=== PATIENT | female | born 1950 ===

== ENCOUNTER 2017-06-11 08:41 | Observation (INO) | payer MEDICAID, OTHER ==
--- NOTE | 2017-06-11 08:49 | C.PDOC ---
History Of Present Illness 66 y/o female with PMHx of HTN and depression brought to ED by daughter with complaints of chest pain 5/10 and shortness of breath since yesterday. Patient states pain is worse when walking up stairs. patient is visiting from [facility] and reports HTN, depression medication has finished, took last dose yesterday. Daughter is requesting for medication to be refilled. Patient denies fever, chills, abdominal pain, nausea vomiting or any other complaints at this time Time Seen by Provider: 06/11/17 08:48 Chief Complaint (Nursing): Chest Pain History Per: Patient History/Exam Limitations: no limitations Onset/Duration Of Symptoms: Days Current Symptoms Are (Timing): Still Present Quality: "Pain" Associated Symptoms: denies: Nausea, Dyspnea Past Medical History Reviewed: Historical Data, Nursing Documentation, Vital Signs Vital Signs: Last Vital Signs Temp 97.7 F 06/11/17 12:12 Pulse 46 L 06/11/17 12:12 Resp 20 06/11/17 12:56 BP 145/58 L 06/11/17 12:12 Pulse Ox 97 06/11/17 12:12 - Medical History PMH: Depression, HTN Surgical History: No Surg Hx Family History: States: No Known Family Hx Review Of Systems Constitutional: Negative for: Fever, Chills Cardiovascular: Positive for: Chest Pain Respiratory: Positive for: Shortness of Breath. Negative for: Cough Gastrointestinal: Negative for: Nausea, Vomiting, Abdominal Pain Skin: Negative for: Rash Physical Exam - Physical Exam Appears: Non-toxic, No Acute Distress Skin: Normal Color, Warm, Dry, No Rash Head: Atraumatic, Normacephalic Eye(s): bilateral: Normal Inspection Oral Mucosa: Moist Neck: Normal ROM, Supple Chest: Symmetrical Cardiovascular: Other (Sinus bradycardia) Respiratory: Normal Breath Sounds, No Rales, No Rhonchi, No Wheezing Extremity: No Pedal Edema, Capillary Refill (<2 seconds) Neurological/Psych: Oriented x3, Normal Speech ED Course And Treatment - Laboratory Results Result Diagrams: 06/11/17 09:40 06/11/17 09:40 Lab Interpretation: Normal ECG: Interpreted By Me, Viewed By Me ECG Rhythm: Sinus Bradycardia ECG Interpretation: Abnormal Interpretation Of ECG: Flip V1-V5. Suggest anterolateral ischemia Rate From EC (bpm) O2 Sat by Pulse Oximetry: 98 (ra) Medical Decision Making Medical Decision Making: Plan: UA, Blood work, ECG, Iv fluids, Xanax, Aspirin Progress: Patient daughter notified patient could stay under observation overnight .Pt with abnl EKG ,chest pain hx sugg of ischemia with numerous risk factors.Will admit for observation,cardiology consult,serial enzymes Disposition - Disposition Disposition: HOSPITALIZED Disposition Time: 14:40 Condition: FAIR - Clinical Impression Clinical Impression: Chest pain - Scribe Statement The provider has reviewed the documentation as recorded by the Darielibellen Toribio All medical record entries made by the Darielibellen were at my direction and personally dictated by me. I have reviewed the chart and agree that the record accurately reflects my personal performance of the history, physical exam, medical decision making, and the department course for this patient. I have also personally directed, reviewed, and agree with the discharge instructions and disposition. Decision To Admit - Pt Status Changed To: Hospital Disposition Of: Observation - . Bed Request Type: Telemetry Admitting Physician: Lisa Douglas Patient Diagnosis: Chest pain
[2017-06-11] MEDS ORDERED: Aspirin 325 mg EC Tablets PO STA (09:07)
[2017-06-11 09:46] LABS: BASO # 0.1 K/uL (0.0-0.2); BASO % 1.3 % (0.0-2.0); EOS # 0.2 K/uL (0.0-0.7); EOS % 2.6 % (0.0-4.0); HEMATOCRIT 39.3 % (34.0-47.0); LYMPH # 3.6 K/uL (1.0-4.3); LYMPH % 39.1 % (20.0-40.0); MEAN CELL VOLUME 86.1 fL (81.0-99.0); MEAN CORPUSCULAR HEMOGLOBIN 28.3 pg (27.0-31.0); MEAN CORPUSCULAR HGB CONC 32.8 g/dL (33.0-37.0); MONO # 0.8 K/uL (0.0-0.8); MONO % 9.3 % (0.0-10.0); RED CELL DISTRIBUTION WIDTH 13.8 % (11.5-14.5); WHITE BLOOD COUNT 9.1 K/uL (4.8-10.8)
[2017-06-11 10:11] LABS: ALB/GLOB RATIO 0.8 (1.0-2.1); ALKALINE PHOSPHATASE 88 U/L (38-126); ALT/SGPT 18 U/L (9-52); AST/SGOT 31 U/L (14-36); BILIRUBIN,TOTAL 0.9 mg/dL (0.2-1.3); BLOOD UREA NITROGEN 11 mg/dL (7-17); CALCIUM 9.6 mg/dl (8.6-10.4); CARBON DIOXIDE 25 mmol/L (22-30); CHLORIDE 100 mmol/L (98-107); GFR AFRICAN-AMERICAN > 60; GLUCOSE,RANDOM 121 mg/dL (65-105); POTASSIUM 4.4 mmol/L (3.6-5.2); SODIUM 139 mmol/L (132-148); TOTAL PROTEIN 9.2 g/dL (6.3-8.3)
--- NOTE | 2017-06-11 10:33 | RAD ---
HISTORY: chest pain COMPARISON: None available. TECHNIQUE: Chest, one view. FINDINGS: Examination limited by habitus and hypoinflation. LUNGS: Right greater than left hilar prominence. Mild pulmonary venous congestion versus vascular crowding due to hypoinflation. Please note that chest x-ray has limited sensitivity for the detection of pulmonary masses. PLEURA: No significant pleural effusion identified. No definite pneumothorax . CARDIOVASCULAR: Borderline cardiomegaly. Atherosclerotic calcifications of the aorta. OSSEOUS STRUCTURES: Osseous demineralization. Degenerative changes. VISUALIZED UPPER ABDOMEN: Unremarkable. OTHER FINDINGS: None. IMPRESSION: Right greater than left hilar prominence. Mild pulmonary venous congestion versus vascular crowding due to hypoinflation.
--- NOTE | 2017-06-11 12:36 | CP.PCM.HP ---
<Lázaro Meng - Last Filed: 06/11/17 14:04> History of Present Illness - History of Present Illness History of Present Illness: PGY-1 H&P for Dr. Lopez CC: "chest pain" This is a 66 year old female visiting from with PMHx Hypertension, Hypercholesterolemia, Depression who presents complaining of left sided chest pain. It began yesterday morning, and patient was resting at the time. Pain described as an intermittent pressure sensation, non-radiating. Pain is not affected by position, exertion, or meals. Patient believes it happened because she had not taken her blood pressure medication because she ran out of her prescription from the [place]. Patient denies fever, chills, headache, dizziness, change in vision, dyspnea at rest or exertion, abdominal pain, dysuria. Patient states that the pain has improved after being given medication in the ED. Per chart review, patient given full dose aspirin and xanax. 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 PMHx: Hypertension, Hypercholesterolemia, Depression PSHx: Patient doesn't remember why but she had vaginal surgery many years ago. Allergies: NKDA Social: Denies tobacco, drugs, alcohol. Visiting [place]. Family Hx: Father of unknown cardiac issue. Mother with HTN. Home meds: Atenolol 50 mg PO daily, Nifedipine ER 20 mg PO daily (the 20 mg ER tablet comes in a combination pack with atenolol. not carried in the [place]). Torsemide 20 mg PO daily, Hipovastatin 20 mg PO daily (equivalent of Lovastatin in the [place]). Present on Admission - Present on Admission Any Indicators Present on Admission: No Review of Systems - Constitutional Constitutional: absent: Chills, Fever - EENT Eyes: absent: Change in Vision Ears: absent: Decreased Hearing Nose/Mouth/Throat: absent: Nasal Congestion - Cardiovascular Cardiovascular: Chest Pain. absent: Diaphoresis, Dyspnea, Palpitations, Pedal Edema - Respiratory Respiratory: absent: Cough, Dyspnea, Wheezing - Gastrointestinal Gastrointestinal: absent: Abdominal Pain, Constipation, Diarrhea, Nausea, Vomiting - Genitourinary Genitourinary: absent: Dysuria, Hematuria - Musculoskeletal Musculoskeletal: absent: Back Pain - Integumentary Integumentary: absent: Rash - Neurological Neurological: absent: Dizziness, Numbness, Headaches, Tingling, Weakness - Psychiatric Psychiatric: absent: Anxiety - Endocrine Endocrine: absent: Fatigue, Palpitations Past Patient History - Past Social History Smoking Status: Never Smoked - CARDIAC Hx Hypertension: Yes - PSYCHIATRIC Hx Depression: Yes - SURGICAL HISTORY Other/Comment: Vaginal dehiscence - ANESTHESIA Hx Anesthesia: Yes Hx Anesthesia Reactions: No Meds Allergies/Adverse Reactions: Allergies Allergy/AdvReac Type Severity Reaction Status Date / Time No Known Allergies Allergy Verified 06/11/17 08:45 Physical Exam - Constitutional Appears: No Acute Distress - Head Exam Head Exam: ATRAUMATIC, NORMOCEPHALIC - Eye Exam Eye Exam: EOMI, PERRL - ENT Exam ENT Exam: Mucous Membranes Moist - Respiratory Exam Respiratory Exam: Decreased Breath Sounds (secondary to body habitus). absent: Rales, Rhonchi, Wheezes - Cardiovascular Exam Cardiovascular Exam: Bradycardia, +S1, +S2 - GI/Abdominal Exam GI & Abdominal Exam: Normal Bowel Sounds, Soft. absent: Distended, Tenderness - Extremities Exam Extremities exam: Negative for: calf tenderness, pedal edema - Back Exam Back exam: absent: CVA tenderness (L), CVA tenderness (R) - Neurological Exam Neurological exam: Alert, CN II-XII Intact, Oriented x3 - Psychiatric Exam Psychiatric exam: Normal Affect, Normal Mood - Skin Skin Exam: Dry, Intact, Normal Color, Warm Results - Vital Signs Recent Vital Signs: Last Vital Signs Temp 97.7 F 06/11/17 12:12 Pulse 46 L 06/11/17 12:12 Resp 20 06/11/17 12:12 BP 145/58 L 06/11/17 12:12 Pulse Ox 97 06/11/17 12:12 - Labs Result Diagrams: 06/11/17 09:40 06/11/17 09:40 Labs: Laboratory Results - last 24 hr 06/11/17 06/11/17 06/11/17 09:40 09:40 09:40 WBC 9.1 RBC 4.56 Hgb 12.9 Hct 39.3 MCV 86.1 MCH 28.3 MCHC 32.8 L RDW 13.8 Plt Count 319 MPV 9.0 Neut % (Auto) 47.7 L Lymph % (Auto) 39.1 Mills % (Auto) 9.3 Eos % (Auto) 2.6 Baso % (Auto) 1.3 Neut # 4.3 Lymph # 3.6 Mills # 0.8 Eos # 0.2 Baso # 0.1 PT 10.9 INR 1.0 APTT 31 Sodium 139 Potassium 4.4 Chloride 100 Carbon Dioxide 25 Anion Gap 18 BUN 11 Creatinine 0.9 Est GFR ( Amer) > 60 Est GFR (Non-Af Amer) > 60 Random Glucose 121 H Calcium 9.6 Total Bilirubin 0.9 AST 31 ALT 18 Alkaline Phosphatase 88 Troponin I < 0.0120 NT-Pro-B Natriuret Pep 252 Total Protein 9.2 H Albumin 4.1 Globulin 5.1 H Albumin/Globulin Ratio 0.8 L Assessment & Plan - Assessment and Plan (Free Text) Plan: Chest Pain R/o ACS EKG in the ER showed sinus bradycardia with Twave inversions in leads V1-V5. First troponins negative. Pro-BNP negative. F/u SADIE x2 and EKG x2 F/u echo Dr. Phipps cardiology consult. Help appreciated. History of Hypertension Due to bradycardia, atenolol will be restarted at half its dose with holding parameters. Due to Nifedipine ER 20 mg being non-formulary, will start lowest dose ER tab available. * Atenolol 25 mg PO daily * Nifedipine 30 mg ER PO daily * Torsemide 20 mg PO daily History of hypercholesterolemia Lovastatin non-formulary * Crestor 5 mg PO HS History of Depression * Sertraline 50 mg PO Prophylactic Measure Heparin 5000 units Q8 Protonix 40 mg PO daily Morning labs TSH Lipid panel Case DW Dr. John Meng PGY-1 <Melissa Lopez - Last Filed: 06/11/17 19:35> Results - Vital Signs Recent Vital Signs: Last Vital Signs Temp 98.1 F 06/11/17 15:53 Pulse 43 L 06/11/17 15:53 Resp 18 06/11/17 15:53 BP 123/72 06/11/17 15:53 Pulse Ox 97 06/11/17 15:53 - Labs Result Diagrams: 06/11/17 09:40 06/11/17 09:40 Labs: Laboratory Results - last 24 hr 06/11/17 06/11/17 06/11/17 09:40 09:40 09:40 WBC 9.1 RBC 4.56 Hgb 12.9 Hct 39.3 MCV 86.1 MCH 28.3 MCHC 32.8 L RDW 13.8 Plt Count 319 MPV 9.0 Neut % (Auto) 47.7 L Lymph % (Auto) 39.1 Mills % (Auto) 9.3 Eos % (Auto) 2.6 Baso % (Auto) 1.3 Neut # 4.3 Lymph # 3.6 Mills # 0.8 Eos # 0.2 Baso # 0.1 PT 10.9 INR 1.0 APTT 31 Sodium 139 Potassium 4.4 Chloride 100 Carbon Dioxide 25 Anion Gap 18 BUN 11 Creatinine 0.9 Est GFR ( Amer) > 60 Est GFR (Non-Af Amer) > 60 Random Glucose 121 H Calcium 9.6 Total Bilirubin 0.9 AST 31 ALT 18 Alkaline Phosphatase 88 Total Creatine Kinase CK-MB (Mass) Troponin I < 0.0120 Troponin I, Quant NT-Pro-B Natriuret Pep 252 Total Protein 9.2 H Albumin 4.1 Globulin 5.1 H Albumin/Globulin Ratio 0.8 L 06/11/17 17:04 WBC RBC Hgb Hct MCV MCH MCHC RDW Plt Count MPV Neut % (Auto) Lymph % (Auto) Mills % (Auto) Eos % (Auto) Baso % (Auto) Neut # Lymph # Mills # Eos # Baso # PT INR APTT Sodium Potassium Chloride Carbon Dioxide Anion Gap BUN Creatinine Est GFR ( Amer) Est GFR (Non-Af Amer) Random Glucose Calcium Total Bilirubin AST ALT Alkaline Phosphatase Total Creatine Kinase 87 CK-MB (Mass) 0.58 Troponin I Troponin I, Quant < 0.0120 NT-Pro-B Natriuret Pep Total Protein Albumin Globulin Albumin/Globulin Ratio Attending/Attestation - Attestation I have personally seen and examined this patient.: Yes I have fully participated in the care of the patient.: Yes I have reviewed all pertinent clinical information: Yes Notes (Text): This is a 66years old female with history of hypertension,hyperlipidemia and depression came for chest pain.Patient was seen and examined with resident.History reviewed.On examination she is comfortable ,not in pain.EKG with T wave invertion,Troponin not elevated plan-do two more sets of troponin and EKG,cardiology consult.continue home meds .Tele Observation overnight
[2017-06-11] MEDS: NIFEdipine 30 mg ER Tab PO SCH (16:24)
[2017-06-12 04:58] VITALS: O2SAT 97
[2017-06-12 07:26] LABS: BASO # 0.1 K/uL (0.0-0.2); BASO % 0.8 % (0.0-2.0); EOS # 0.2 K/uL (0.0-0.7); EOS % 2.9 % (0.0-4.0); HEMATOCRIT 37.3 % (34.0-47.0); LYMPH # 2.9 K/uL (1.0-4.3); LYMPH % 41.1 % (20.0-40.0); MEAN CELL VOLUME 86.8 fL (81.0-99.0); MEAN CORPUSCULAR HEMOGLOBIN 28.7 pg (27.0-31.0); MEAN CORPUSCULAR HGB CONC 33.1 g/dL (33.0-37.0); MEAN PLATELET VOLUME 9.1 fL (7.2-11.7); MONO # 0.7 K/uL (0.0-0.8); MONO % 10.6 % (0.0-10.0); RED CELL DISTRIBUTION WIDTH 13.8 % (11.5-14.5)
[2017-06-12 08:05] LABS: CHLORIDE 100 mmol/L (98-107); POTASSIUM 3.6 mmol/L (3.6-5.2); SODIUM 135 mmol/L (132-148)
[2017-06-12 08:07] LABS: BILIRUBIN,TOTAL 0.7 mg/dL (0.2-1.3); CARBON DIOXIDE 27 mmol/L (22-30); CHOLESTEROL 172 mg/dL (0-199); GFR AFRICAN-AMERICAN > 60
[2017-06-12 08:08] LABS: ALB/GLOB RATIO 0.9 (1.0-2.1); ALKALINE PHOSPHATASE 86 U/L (38-126); ALT/SGPT 24 U/L (9-52); AST/SGOT 28 U/L (14-36); BLOOD UREA NITROGEN 10 mg/dL (7-17); CALCIUM 8.7 mg/dl (8.6-10.4); GLUCOSE,RANDOM 110 mg/dL (65-105); TOTAL PROTEIN 7.8 g/dL (6.3-8.3)
[2017-06-12 08:23] LABS: THYROID STIMULATING HORMONE 1.39 mIU/L (0.46-4.68)
[2017-06-12 08:30] VITALS: BP 130/78; PULSE 45; RESP 20; TEMP 98.2
[2017-06-12] MEDS ORDERED: Pantoprazole 40 mg EC Tab PO SCH (10:00)
[2017-06-12] MEDS ORDERED: NIFEdipine 30 mg ER Tab PO SCH (10:00)
[2017-06-12] MEDS: NIFEdipine 30 mg ER Tab PO SCH (10:14)
--- NOTE | 2017-06-12 11:21 | CP.PCM.CON ---
History of Present Illness - History of Present Illness History of Present Illness: patient seen/examined. history of HTN presents with chest pain. She states symptoms lasted for <1 minute, felt symptoms were due to lack of medications (she ran out of meds one week ago). The patient states she has no current chest pain. EKG reveals normal sinus rhythm with anterolateral T wave inversions. Cardiac enzymes are negative. Given absence of symptoms and negative cardiac enzymes patient can be discharged to home. I would consider nuclear stress test to assess for myocardial ischemia, however the patient wishes to go home and have testing in her country. I informed patient and family that if symptoms recur to return immediately to the ER. Add plavix 75 mg daily. Past Patient History - Past Medical History & Family History Past Medical History?: Yes - Past Social History Smoking Status: Never Smoked - CARDIAC Hx Hypertension: Yes - PULMONARY Hx Respiratory Disorders: No - NEUROLOGICAL Hx Neurological Disorder: No - HEENT Hx HEENT Problems: No - RENAL Hx Chronic Kidney Disease: No - ENDOCRINE/METABOLIC Hx Endocrine Disorders: No - HEMATOLOGICAL/ONCOLOGICAL Hx Blood Disorders: No - INTEGUMENTARY Hx Dermatological Problems: No - MUSCULOSKELETAL/RHEUMATOLOGICAL Hx Musculoskeletal Disorders: No Hx Falls: No - GASTROINTESTINAL Hx Gastrointestinal Disorders: No - GENITOURINARY/GYNECOLOGICAL Hx Genitourinary Disorders: No - PSYCHIATRIC Hx Depression: Yes - SURGICAL HISTORY Other/Comment: Vaginal dehiscence - ANESTHESIA Hx Anesthesia: Yes Hx Anesthesia Reactions: No Meds Home Medications: Home Medication List Medication Instructions Recorded Confirmed Type Aspirin [Aspirin Chewable] 81 mg PO DAILY chew 06/12/17 Rx Lovastatin 20 mg PO HS 30 Days #30 tablet 06/12/17 Rx NIFEdipine ER [Procardia XL] 30 mg PO DAILY 30 Days #30 ter 06/12/17 Rx Sertraline [Zoloft] 50 mg PO DAILY 30 Days #30 tab 06/12/17 Rx Torsemide [Demadex] 20 mg PO DAILY 30 Days #30 tab 06/12/17 Rx Allergies/Adverse Reactions: Allergies Allergy/AdvReac Type Severity Reaction Status Date / Time No Known Allergies Allergy Verified 06/11/17 08:45 - Medications Medications: Current Medications Aspirin (Aspirin Chewable) 81 mg PO DAILY [facility] Last Admin: 06/12/17 10:13 Dose: 81 mg Atenolol (Tenormin) 25 mg PO DAILY [facility] Last Admin: 06/12/17 10:14 Dose: Not Given Heparin Sodium (Porcine) (Heparin) 5,000 units SC Q8 [facility] Last Admin: 06/12/17 05:32 Dose: 5,000 units Nifedipine (Procardia Xl) 30 mg PO DAILY [facility] Last Admin: 06/12/17 10:14 Dose: 30 mg Pantoprazole Sodium (Protonix Ec Tab) 40 mg PO DAILY [facility] Last Admin: 06/12/17 10:13 Dose: 40 mg Rosuvastatin Calcium (Crestor) 5 mg PO HS [facility] Last Admin: 06/11/17 21:23 Dose: 5 mg Sertraline HCl (Zoloft) 50 mg PO DAILY [facility] Last Admin: 06/12/17 10:14 Dose: 50 mg Torsemide (Demadex) 20 mg PO DAILY [facility] Last Admin: 06/12/17 10:13 Dose: 20 mg Results - Vital Signs Recent Vital Signs: Last Vital Signs Temp 98.2 F 06/12/17 08:29 Pulse 45 L 06/12/17 08:29 Resp 20 06/12/17 08:29 BP 130/78 06/12/17 08:29 Pulse Ox 97 06/12/17 08:29 - Labs Result Diagrams: 06/12/17 07:12 06/12/17 07:12 Labs: Laboratory Results - last 24 hr 06/11/17 06/12/17 06/12/17 17:04 00:39 07:12 WBC 7.0 RBC 4.30 Hgb 12.4 Hct 37.3 MCV 86.8 MCH 28.7 MCHC 33.1 RDW 13.8 Plt Count 283 MPV 9.1 Neut % (Auto) 44.6 L Lymph % (Auto) 41.1 H Schley % (Auto) 10.6 H Eos % (Auto) 2.9 Baso % (Auto) 0.8 Neut # 3.1 Lymph # 2.9 Schley # 0.7 Eos # 0.2 Baso # 0.1 Sodium Potassium Chloride Carbon Dioxide Anion Gap BUN Creatinine Est GFR ( Amer) Est GFR (Non-Af Amer) Random Glucose Calcium Total Bilirubin AST ALT Alkaline Phosphatase Total Creatine Kinase 87 90 CK-MB (Mass) 0.58 0.49 Troponin I, Quant < 0.0120 < 0.0120 Total Protein Albumin Globulin Albumin/Globulin Ratio Triglycerides Cholesterol LDL Cholesterol Direct HDL Cholesterol TSH 3rd Generation 06/12/17 07:12 WBC RBC Hgb Hct MCV MCH MCHC RDW Plt Count MPV Neut % (Auto) Lymph % (Auto) Schley % (Auto) Eos % (Auto) Baso % (Auto) Neut # Lymph # Schley # Eos # Baso # Sodium 135 Potassium 3.6 Chloride 100 Carbon Dioxide 27 Anion Gap 12 BUN 10 Creatinine 0.8 Est GFR ( Amer) > 60 Est GFR (Non-Af Amer) > 60 Random Glucose 110 H Calcium 8.7 Total Bilirubin 0.7 AST 28 ALT 24 Alkaline Phosphatase 86 Total Creatine Kinase CK-MB (Mass) Troponin I, Quant Total Protein 7.8 Albumin 3.7 Globulin 4.2 H Albumin/Globulin Ratio 0.9 L Triglycerides 115 Cholesterol 172 LDL Cholesterol Direct 128 HDL Cholesterol 34 TSH 3rd Generation 1.39
--- NOTE | 2017-06-12 12:20 | CP.PCM.DIS ---
<Lázaro Meng - Last Filed: 06/12/17 18:51> Provider - Provider Date of Admission: 06/11/17 11:09 Attending physician: Lisa Douglas DO Consults: Dr. Phipps-cardiology Time Spent in preparation of Discharge (in minutes): 32 Diagnosis - Discharge Diagnosis (1) Chest pain, rule out acute myocardial infarction Status: Acute (2) History of hypertension Status: Chronic (3) History of hypercholesterolemia Status: Chronic (4) History of depression Status: Chronic (5) Prophylactic measure Status: Acute Hospital Course - Lab Results Lab Results: Most Recent Lab Values WBC 7.0 K/uL (4.8-10.8) 06/12/17 07:12 RBC 4.30 Mil/uL (3.80-5.20) 06/12/17 07:12 Hgb 12.4 g/dL (11.0-16.0) 06/12/17 07:12 Hct 37.3 % (34.0-47.0) 06/12/17 07:12 MCV 86.8 fL (81.0-99.0) 06/12/17 07:12 MCH 28.7 pg (27.0-31.0) 06/12/17 07:12 MCHC 33.1 g/dL (33.0-37.0) 06/12/17 07:12 RDW 13.8 % (11.5-14.5) 06/12/17 07:12 Plt Count 283 K/uL (130-400) 06/12/17 07:12 MPV 9.1 fL (7.2-11.7) 06/12/17 07:12 Neut % (Auto) 44.6 % (50.0-75.0) L 06/12/17 07:12 Lymph % (Auto) 41.1 % (20.0-40.0) H 06/12/17 07:12 Holmes % (Auto) 10.6 % (0.0-10.0) H 06/12/17 07:12 Eos % (Auto) 2.9 % (0.0-4.0) 06/12/17 07:12 Baso % (Auto) 0.8 % (0.0-2.0) 06/12/17 07:12 Neut # 3.1 K/uL (1.8-7.0) 06/12/17 07:12 Lymph # 2.9 K/uL (1.0-4.3) 06/12/17 07:12 Holmes # 0.7 K/uL (0.0-0.8) 06/12/17 07:12 Eos # 0.2 K/uL (0.0-0.7) 06/12/17 07:12 Baso # 0.1 K/uL (0.0-0.2) 06/12/17 07:12 PT 10.9 SECONDS (9.7-12.2) 06/11/17 09:40 INR 1.0 06/11/17 09:40 APTT 31 SECONDS (21-34) 06/11/17 09:40 Sodium 135 mmol/L (132-148) 06/12/17 07:12 Potassium 3.6 mmol/L (3.6-5.2) 06/12/17 07:12 Chloride 100 mmol/L (98-107) 06/12/17 07:12 Carbon Dioxide 27 mmol/L (22-30) 06/12/17 07:12 Anion Gap 12 (10-20) 06/12/17 07:12 BUN 10 mg/dL (7-17) 06/12/17 07:12 Creatinine 0.8 mg/dL (0.7-1.2) 06/12/17 07:12 Est GFR ( Amer) > 60 06/12/17 07:12 Est GFR (Non-Af Amer) > 60 06/12/17 07:12 Random Glucose 110 mg/dL (65-105) H 06/12/17 07:12 Calcium 8.7 mg/dl (8.6-10.4) 06/12/17 07:12 Total Bilirubin 0.7 mg/dL (0.2-1.3) 06/12/17 07:12 AST 28 U/L (14-36) 06/12/17 07:12 ALT 24 U/L (9-52) 06/12/17 07:12 Alkaline Phosphatase 86 U/L (38-126) 06/12/17 07:12 Total Creatine Kinase 90 U/L (30-135) 06/12/17 00:39 CK-MB (Mass) 0.49 ng/mL (0.0-3.38) 06/12/17 00:39 Troponin I < 0.0120 ng/mL (0.00-0.120) 06/11/17 09:40 Troponin I, Quant < 0.0120 ng/mL (0.00-0.120) 06/12/17 00:39 NT-Pro-B Natriuret Pep 252 pg/mL (0-900) 06/11/17 09:40 Total Protein 7.8 g/dL (6.3-8.3) 06/12/17 07:12 Albumin 3.7 g/dL (3.5-5.0) 06/12/17 07:12 Globulin 4.2 gm/dL (2.2-3.9) H 06/12/17 07:12 Albumin/Globulin Ratio 0.9 (1.0-2.1) L 06/12/17 07:12 Triglycerides 115 mg/dL (0-149) 06/12/17 07:12 Cholesterol 172 mg/dL (0-199) 06/12/17 07:12 LDL Cholesterol Direct 128 mg/dL (0-129) 06/12/17 07:12 HDL Cholesterol 34 mg/dL (30-70) 06/12/17 07:12 TSH 3rd Generation 1.39 mIU/L (0.46-4.68) 06/12/17 07:12 - Hospital Course Hospital Course: On admission: "This is a 66 year old [place] with PMHx Hypertension, Hypercholesterolemia, Depression who presents complaining of left sided chest pain. It began yesterday morning, and patient was resting at the time. Pain described as an intermittent pressure sensation, non-radiating. Pain is not affected by position, exertion, or meals. Patient believes it happened because she had not taken her blood pressure medication because she ran out of her prescription from the [place]. Patient denies fever, chills, headache, dizziness, change in vision, dyspnea at rest or exertion, abdominal pain, dysuria. Patient states that the pain has improved after being given medication in the ED. Per chart review, patient given full dose aspirin and xanax. Patient has a test automation architect in the [place] who has her on antihypertensive medications as listed below." Hospital Course: Patient admitted for chest pain and to rule out ACS. Patient's chest pain resolved. Troponins were unremarkable. Multiple EKG significant for sinus bradycardia with T wave inversions in V1-V5. Patient asymptomatic. Financial Secretary Dr. Phipps consulted. Dr. Phipps cleared patient for discharge. Patient discharged with prescriptions for her home medications and Plavix per Dr. Clay's recommendation. Home Atenolol was held due to bradycardia. This is a summary of the hospital course. For more information, refer to the medical records. Discharge Exam - Head Exam Head Exam: ATRAUMATIC, NORMOCEPHALIC - Eye Exam Eye Exam: EOMI, PERRL - ENT Exam ENT Exam: Mucous Membranes Moist - Respiratory Exam Respiratory Exam: Decreased Breath Sounds (secondary to body habitus), NORMAL BREATHING PATTERN. absent: Rales, Rhonchi, Wheezes - Cardiovascular Exam Cardiovascular Exam: Bradycardia, +S1, +S2 - GI/Abdominal Exam GI & Abdominal Exam: Normal Bowel Sounds, Soft. absent: Distended, Tenderness - Extremities Exam Extremities exam: pedal pulses present - Neurological Exam Neurological exam: Alert, CN II-XII Intact, Oriented x3 - Psychiatric Exam Psychiatric exam: Normal Affect, Normal Mood - Skin Skin Exam: Dry, Intact, Normal Color, Warm Discharge Plan - Discharge Medications Prescriptions: Clopidogrel [Plavix] 75 mg PO DAILY 30 Days #30 tab Lovastatin 20 mg PO HS 30 Days #30 tablet NIFEdipine ER [Procardia XL] 30 mg PO DAILY 30 Days #30 ter Sertraline [Zoloft] 50 mg PO DAILY 30 Days #30 tab Torsemide [Demadex] 20 mg PO DAILY 30 Days #30 tab - Follow Up Plan Condition: STABLE Disposition: HOME/ ROUTINE Instructions: Chest Pain (DC), Chest Pain (GEN) Additional Instructions: We are discharging you on the same prescriptions that you were taking except for the Atenolol. We recommend that you stop taking it because of your low heart rate. If you take it, the heart may beat even slower. Take the following medications: 1) Nifedipine Extended Release 30 mg by mouth once a day 2) Torsemide 20 mg by mouth once a day 3) Lovastatin 20 mg by mouth once a day 4) Sertraline 50 mg by mouth once a day 5) Aspirin 81 mg by mouth once a day 6) Plavix 75 mg by mouth once a day We did not give a prescription for the aspirin because you can buy it without one. You may not recognize some of these medication names because they are sold under a different brand name in the [place]. Please follow up at the [facility] in the basement of the hospital within 1 week. Please follow up with your test automation architect as soon as you return to the [facility]. If there are any new or worsening symptoms, please return to the emergency room. Nosotros le damos de mare en las mismas prescripciones que usted estaba tomando excepto para el Atenolol. Le recomendamos que deje de tomarlo debido a cuevas frecuencia cardaca baja. Si lo liseth, el corazn puede batir incluso ms marroquin. Haskell los siguientes medicamentos: 1) Nifedipine Extended Release 30 mg por va oral catherine vez al da 2) Torsemida 20 mg por va oral catherine vez al da 3) Lovastatina 20 mg por va oral catherine vez al da 4) Sertralina 50 mg por va oral catherine vez al da 5) Aspirina 81 mg por va oral catherine vez al da 6) Plavix 75 mg por va oral catherine vez al da No le dimos catherine receta para la aspirina porque usted puede comprarla sin catherine. Es posible que no reconozca algunos de estos nombres de medicamentos porque se venden bajo catherine mahin distinta en la [place]. Por favor, siga en el [facility] en el stano del hospital dentro de catherine semana. Por favor, siga con cuevas cardilogo russo pronto erick regrese a la [place]. Si hay sntomas nuevos o que empeoran, por favor regrese a la dennis de emergencias. Referrals: [facility] at [facility] [Outside] Clau Phipps MD [Staff Provider] - <Melissa Lopez - Last Filed: 06/13/17 16:04> Provider - Provider Date of Admission: 06/11/17 11:09 Attending physician: Lisa Douglas, DO Hospital Course - Lab Results Lab Results: Most Recent Lab Values WBC 7.0 K/uL (4.8-10.8) 06/12/17 07:12 RBC 4.30 Mil/uL (3.80-5.20) 06/12/17 07:12 Hgb 12.4 g/dL (11.0-16.0) 06/12/17 07:12 Hct 37.3 % (34.0-47.0) 06/12/17 07:12 MCV 86.8 fL (81.0-99.0) 06/12/17 07:12 MCH 28.7 pg (27.0-31.0) 06/12/17 07:12 MCHC 33.1 g/dL (33.0-37.0) 06/12/17 07:12 RDW 13.8 % (11.5-14.5) 06/12/17 07:12 Plt Count 283 K/uL (130-400) 06/12/17 07:12 MPV 9.1 fL (7.2-11.7) 06/12/17 07:12 Neut % (Auto) 44.6 % (50.0-75.0) L 06/12/17 07:12 Lymph % (Auto) 41.1 % (20.0-40.0) H 06/12/17 07:12 Holmes % (Auto) 10.6 % (0.0-10.0) H 06/12/17 07:12 Eos % (Auto) 2.9 % (0.0-4.0) 06/12/17 07:12 Baso % (Auto) 0.8 % (0.0-2.0) 06/12/17 07:12 Neut # 3.1 K/uL (1.8-7.0) 06/12/17 07:12 Lymph # 2.9 K/uL (1.0-4.3) 06/12/17 07:12 Holmes # 0.7 K/uL (0.0-0.8) 06/12/17 07:12 Eos # 0.2 K/uL (0.0-0.7) 06/12/17 07:12 Baso # 0.1 K/uL (0.0-0.2) 06/12/17 07:12 PT 10.9 SECONDS (9.7-12.2) 06/11/17 09:40 INR 1.0 06/11/17 09:40 APTT 31 SECONDS (21-34) 06/11/17 09:40 Sodium 135 mmol/L (132-148) 06/12/17 07:12 Potassium 3.6 mmol/L (3.6-5.2) 06/12/17 07:12 Chloride 100 mmol/L (98-107) 06/12/17 07:12 Carbon Dioxide 27 mmol/L (22-30) 06/12/17 07:12 Anion Gap 12 (10-20) 06/12/17 07:12 BUN 10 mg/dL (7-17) 06/12/17 07:12 Creatinine 0.8 mg/dL (0.7-1.2) 06/12/17 07:12 Est GFR ( Amer) > 60 06/12/17 07:12 Est GFR (Non-Af Amer) > 60 06/12/17 07:12 Random Glucose 110 mg/dL (65-105) H 06/12/17 07:12 Calcium 8.7 mg/dl (8.6-10.4) 06/12/17 07:12 Total Bilirubin 0.7 mg/dL (0.2-1.3) 06/12/17 07:12 AST 28 U/L (14-36) 06/12/17 07:12 ALT 24 U/L (9-52) 06/12/17 07:12 Alkaline Phosphatase 86 U/L (38-126) 06/12/17 07:12 Total Creatine Kinase 90 U/L (30-135) 06/12/17 00:39 CK-MB (Mass) 0.49 ng/mL (0.0-3.38) 06/12/17 00:39 Troponin I < 0.0120 ng/mL (0.00-0.120) 06/11/17 09:40 Troponin I, Quant < 0.0120 ng/mL (0.00-0.120) 06/12/17 00:39 NT-Pro-B Natriuret Pep 252 pg/mL (0-900) 06/11/17 09:40 Total Protein 7.8 g/dL (6.3-8.3) 06/12/17 07:12 Albumin 3.7 g/dL (3.5-5.0) 06/12/17 07:12 Globulin 4.2 gm/dL (2.2-3.9) H 06/12/17 07:12 Albumin/Globulin Ratio 0.9 (1.0-2.1) L 06/12/17 07:12 Triglycerides 115 mg/dL (0-149) 06/12/17 07:12 Cholesterol 172 mg/dL (0-199) 06/12/17 07:12 LDL Cholesterol Direct 128 mg/dL (0-129) 06/12/17 07:12 HDL Cholesterol 34 mg/dL (30-70) 06/12/17 07:12 TSH 3rd Generation 1.39 mIU/L (0.46-4.68) 06/12/17 07:12
--- NOTE | 2017-06-12 12:51 | CARD ---
APPROVED REPORT EXAM: Two-dimensional and M-mode echocardiogram with Doppler and color Doppler. INDICATION Chest Pain RISK FACTORS Hypertension Hyperlipidemia 2D DIMENSIONS IVSd1.0 (0.7-1.1cm)LVDd5.3 (3.9-5.9cm) PWd1.1 (0.7-1.1cm)LVDs3.5 (2.5-4.0cm) FS (%) 34.1 %LVEF (%)62.6 (>50%) M-Mode DIMENSIONS Left Atrium (MM)4.46 (2.5-4.0cm)Aortic Root3.23 (2.2-3.7cm) Aortic Cusp Exc.2.28 (1.5-2.0cm) Mitral Valve MV E Tmbudkai22.2cm/sMV A Bjrveipj41.6cm/sE/A ratio0.8 TDI E/Lateral E'0.0E/Medial E'0.0 Tricuspid Valve TR Peak Lhcsmhgr334yc/sTR Peak Gr.[id number] LEFT VENTRICLE The left ventricle is normal size. There is normal left ventricular wall thickness. The left ventricular function is normal. The left ventricular ejection fraction is within the normal range. No regional wall motion abnormalities noted. Transmitral Doppler flow pattern is Grade I-abnormal relaxation pattern. No left ventricle thrombus noted on this study. There is no ventricular septal defect visualized. There is no left ventricular aneurysm. There is no mass noted in the left ventricle. RIGHT VENTRICLE The right ventricle is normal size. There is normal right ventricular wall thickness. The right ventricular systolic function is normal. ATRIA The left atrium is moderately dilated. The right atrium size is normal. The interatrial septum is intact with no evidence for an atrial septal defect. AORTIC VALVE The aortic valve is normal in structure. There is trace aortic regurgitation. There is no aortic valvular stenosis. There is no aortic valvular vegetation. MITRAL VALVE The mitral valve is normal in structure. There is no evidence of mitral valve prolapse. There is no mitral valve stenosis. Mitral regurgitation is mild. TRICUSPID VALVE The tricuspid valve is normal in structure. There is mild tricuspid regurgitation. There is no tricuspid valve prolapse or vegetation. There is no tricuspid valve stenosis. PULMONIC VALVE The pulmonary valve is normal in structure. There is trace to mild pulmonic valvular regurgitation. There is no pulmonic valvular stenosis. GREAT VESSELS The aortic root is normal in size. The ascending aorta is normal in size. The pulmonary artery is normal. The IVC is normal in size and collapses >50% with inspiration. PERICARDIAL EFFUSION The pericardium appears normal. There is no pleural effusion. <Conclusion> The left ventricular function is normal. Transmitral Doppler flow pattern is Grade I-abnormal relaxation pattern. The left atrium is moderately dilated. There is trace aortic regurgitation. Mitral regurgitation is mild. There is mild tricuspid regurgitation. There is trace to mild pulmonic valvular regurgitation.
--- NOTE | 2017-06-12 13:05 | CARD ---
APPROVED REPORT EKG Measurement Heart [id number] <Conclusion> Marked sinus bradycardia ST & T wave abnormality, consider anterolateral ischemia Abnormal ECG
--- NOTE | 2017-06-12 21:20 | CARD ---
APPROVED REPORT EKG Measurement Heart [id number] <Conclusion> Sinus bradycardia ST & T wave abnormality, consider anterolateral ischemia Abnormal ECG
== END 2017-06-12 12:22 | disposition home or self-care (01) ==
LOC: C.ER 08:41 → C.9E 11:09 → C.6T 12:01
PROVIDERS: ADMIT Hospitalist; ATTEND Hospitalist
DX: R07.89 Other chest pain (principal); E78.00 Pure hypercholesterolemia, unspecified; I10 Essential (primary) hypertension; F32.89 Other specified depressive episodes
CPT/HCPCS: 36415; 71010; 80053; 80061; 83880; 84443; 84484; 85025; 85610; 85730; 93005; 93306; 99285; G0378; J1644